=== PATIENT | female | born 1985 | race African-American/Black ===

== ENCOUNTER 2024-05-11 17:17 | Inpatient (IN) | payer SELFPAY ==
[~2024-05-11] VITALS: Ht 165.1 cm; Wt 169.2 kg
[2024-05-11 17:21] VITALS: O2SAT 96
[2024-05-11] MEDS ORDERED: ACETAMINOPHEN 325MG TABLET PO STA (18:32)
[2024-05-11] MEDS: SODIUM CHLORIDE 0.9% 1000ML BAG (SEPSIS BOLUS) IV ONE (18:45)
[2024-05-11] MEDS: PIPERACILLIN/TAZO 3.375G/50ML 50 ML IV STA (20:30)
[2024-05-11] MEDS: VANCOMYCIN 2,000 MG in DEXT 5% WATER 500 ML IV NR (20:30)
[2024-05-11] MEDS: ACETAMINOPHEN 325MG TABLET PO NR (20:34)
[2024-05-11 20:43] LABS: CHLORIDE 102 mEq/L (98-107); POTASSIUM 3.6 mEq/L (3.5-5.1); SODIUM 134 mEq/L (136-145)
[2024-05-11 20:44] LABS: CALCIUM 8.8 mg/dL (8.7-10.4); CARBON DIOXIDE 25 mEq/L (21-32)
[2024-05-11 20:45] LABS: DIFFERENTIAL COMMENT 1; HEMATOCRIT. 32.4 % (36.0-48.0); HEMOGLOBIN. 10.1 g/dL (12.0-16.0); MEAN CORPUSCULAR HEMOGLOBIN 22.4 pg (28.0-32.0); MEAN CORPUSCULAR HGB CONC 31.1 g/dL (31.0-37.0); MEAN PLATELET VOLUME 7.3 fl (7.4-10.4); PLATELET 434 x1000/uL (130-400); RED CELL DISTRIBUTION WIDTH 20.4 % (11.6-14.6); WHITE BLOOD COUNT 29.9 x1000/uL (4.5-11.0)
[2024-05-11] MEDS: ONDANSETRON HCL 4MG/2ML INJ IV ONE (20:45)
[2024-05-11] MEDS: MORPHINE SULFATE 4 MG/ML INJ (FOR IV/IM USE) IV ONE (20:45)
[2024-05-11 20:46] LABS: INR 1.1; PROTHROMBIN TIME 12.2 sec (9.6-11.0)
[2024-05-11 20:48] LABS: HCG SCREEN NEGATIVE
[2024-05-11 20:49] LABS: CREATININE 0.9 mg/dL (0.6-1.0); GLUCOSE 181 mg/dL (70-105)
[2024-05-11 20:50] LABS: TROPONIN I HIGH SENSITIVITY 4 ng/L (3.0-34); UREA NITROGEN BLOOD 7 mg/dL (9-23)
[2024-05-11 20:51] LABS: ALANINE AMINOTRANSFERASE 24 IU/L (10-49); ALBUMIN 4.1 g/dL (3.2-4.8); ASPARTATE AMINOTRANSFERASE 18 IU/L (<34); BILIRUBIN DIRECT 0.2 mg/dL (<=3.0)
[2024-05-11 20:52] LABS: BILIRUBIN TOTAL 0.7 mg/dL (0.1-1.0); PROTEIN TOTAL 7.1 g/dL (6.0-8.3)
[2024-05-11 21:04] LABS: ANISOCYTOSIS 1+; HYPOCHROMASIA 1+; MICROCYTOSIS 2+; PLATELET ESTIMATE INCREASED
[2024-05-11] MEDS: KETOROLAC 30MG/ML VIAL IV ONE (22:33)
[2024-05-11 23:05] LABS: CLARITY URINE TURBID (CLEAR); COLOR URINE RED (YELLOW); GLUCOSE URINE NEGATIVE (NEGATIVE); KETONES URINE 1+ (NEGATIVE); LEUKOCYTE ESTERASE URINE 3+ (NEGATIVE); NITRITE URINE NEGATIVE (NEGATIVE); OCCULT BLOOD URINE 3+ (NEGATIVE); PH URINE 5.5 (4.5-8.0); PROTEIN URINE 2+ (NEGATIVE); SPECIFIC GRAVITY URINE 1.023 (1.005-1.030)
[2024-05-11 23:25] LABS: RBC URINE TNTC /hpf (0-2); SQUAMOUS EPITHELIAL CELL URINE 1+ /lpf (RARE/1+); WBC URINE TNTC /hpf (0-2)
[2024-05-11 23:26] LABS: BACTERIA URINE 3+
[2024-05-12] MEDS: HYDROMORPHONE HCL/PF 2MG/ML INJ IV PRN (02:47)
[2024-05-12 09:00] VITALS: BP 137/73; PULSE 110; RESP 18; TEMP 97.7
[2024-05-12 10:31] VITALS: BP 132/80; PULSE 105; RESP 18; TEMP 100
[2024-05-12 12:00] VITALS: BP 135/81; PULSE 112; RESP 18; TEMP 104.7
[2024-05-12] MEDS ORDERED: CLONIDINE 0.1MG TABLET PO PRN (12:15)
[2024-05-12] MEDS ORDERED: MORPHINE SULFATE 2 MG/ML INJ (NOT FOR IM USE) IV PRN (12:15)
[2024-05-12] MEDS: PANTOPRAZOLE SODIUM 40 MG/VIAL IV SCH (12:51)
[2024-05-12] MEDS: ONDANSETRON HCL 4MG/2ML INJ IV PRN (12:52)
[2024-05-12] MEDS: ACETAMINOPHEN 325MG TABLET PO PRN (12:55)
[2024-05-12] MEDS: ENOXAPARIN 40MG/0.4ML SYR SUBCUT SCH (12:55)
[2024-05-12] MEDS: PIPERACILLIN/TAZO 3.375G/50ML 50 ML IV SCH (13:13)
[2024-05-12] MEDS: SODIUM CHLORIDE 0.9% 1,000 ML IV SCH (13:13)
[2024-05-12 14:07] LABS: BG BASE EXCESS -1.5 mmol/L (-2.0-2.0); BG HCO3 ACT 21.6 mmol/L (22.0-26.0); BG METHEMOGLOBIN 0.3 % (0.0-1.5); BG OXYGEN SATURATION 93.9 % (92.0-98.5); BG OXYHEMOGLOBIN 92.7 % (94.0-97.0); BG PCO2 31.1 mmHg (35.0-45.0); BG PO2 68.4 mmHg (75.0-100.0); BG SAMPLE SITE RIGHT RADIAL; BG VENT MODE ROOM AIR
[2024-05-12 16:00] VITALS: BP 133/60; PULSE 103; RESP 18; TEMP 100
[2024-05-12 20:00] VITALS: BP 128/56; PULSE 98; RESP 18; TEMP 97.6
[2024-05-12] MEDS: KETOROLAC 30MG/ML VIAL IV SCH (20:24)
[2024-05-12] MEDS ORDERED: NALOXONE HCL 0.4MG/ML VIAL IV PRN (21:15)
[2024-05-12 21:56] LABS: BASOPHILS % 0.1 % (0.0-2.0); DIFFERENTIAL COMMENT 0; EOSINOPHILS % 0.1 % (0.0-5.0); HEMATOCRIT. 29.9 % (36.0-48.0); HEMOGLOBIN. 9.1 g/dL (12.0-16.0); MEAN CORPUSCULAR HEMOGLOBIN 22.1 pg (28.0-32.0); MEAN CORPUSCULAR HGB CONC 30.5 g/dL (31.0-37.0); MEAN CORPUSCULAR VOLUME 72.5 fL (81.0-99.0); MEAN PLATELET VOLUME 7.7 fl (7.4-10.4); MONOCYTES % 11.3 % (2.0-8.0); NEUTROPHILS % 79.5 % (40.0-76.0); PLATELET 375 x1000/uL (130-400); RED BLOOD CELL COUNT 4.12 mill/uL (4.2-5.4); RED CELL DISTRIBUTION WIDTH 20.7 % (11.6-14.6); WHITE BLOOD COUNT 25.5 x1000/uL (4.5-11.0)
[2024-05-12 21:57] LABS: CHLORIDE 103 mEq/L (98-107); POTASSIUM 3.4 mEq/L (3.5-5.1); SODIUM 134 mEq/L (136-145)
[2024-05-12 21:58] LABS: CALCIUM 8.1 mg/dL (8.7-10.4); CARBON DIOXIDE 23 mEq/L (21-32)
[2024-05-12 22:03] LABS: GLUCOSE 205 mg/dL (70-105); UREA NITROGEN BLOOD 8 mg/dL (9-23)
[2024-05-12] MEDS: ZOLPIDEM TARTRATE 5MG TABLET PO PRN (23:20)
[2024-05-13] VITALS: BP 133/67; PULSE 96; RESP 18; TEMP 98
[2024-05-13] MEDS: VANCOMYCIN 1250MG in DEXTROSE 5% WATER 250ML IV SCH (02:17)
[2024-05-13 04:00] VITALS: BP 130/64; PULSE 101; RESP 18; TEMP 98.2
[2024-05-13 08:00] VITALS: BP 101/65; PULSE 114; RESP 18; TEMP 102.4
[2024-05-13 10:09] LABS: BASOPHILS % 0.3 % (0.0-2.0); DIFFERENTIAL COMMENT 0; EOSINOPHILS % 0.1 % (0.0-5.0); HEMATOCRIT. 28.6 % (36.0-48.0); HEMOGLOBIN. 8.9 g/dL (12.0-16.0); LYMPHOCYTES % 7.8 % (20.0-50.0); MEAN CORPUSCULAR HEMOGLOBIN 22.1 pg (28.0-32.0); MEAN CORPUSCULAR VOLUME 71.5 fL (81.0-99.0); MEAN PLATELET VOLUME 7.6 fl (7.4-10.4); MONOCYTES % 10.1 % (2.0-8.0); NEUTROPHILS % 81.7 % (40.0-76.0); PLATELET 373 x1000/uL (130-400); RED CELL DISTRIBUTION WIDTH 20.4 % (11.6-14.6); WHITE BLOOD COUNT 18.4 x1000/uL (4.5-11.0)
[2024-05-13 10:16] LABS: CHLORIDE 103 mEq/L (98-107); POTASSIUM 3.5 mEq/L (3.5-5.1); SODIUM 134 mEq/L (136-145)
[2024-05-13 10:17] LABS: CARBON DIOXIDE 25 mEq/L (21-32)
[2024-05-13 10:22] LABS: CREATININE 0.9 mg/dL (0.6-1.0); GLUCOSE 201 mg/dL (70-105); UREA NITROGEN BLOOD 8 mg/dL (9-23)
[2024-05-13 12:00] VITALS: BP 120/60; PULSE 114; RESP 19; TEMP 102
[2024-05-13] MEDS: POTASSIUM CHLORIDE 20MEQ TABLET SR PO NR (12:16)
[2024-05-13 16:00] VITALS: BP 124/56; PULSE 108; RESP 20; TEMP 98.8
[2024-05-13] MEDS: VANCOMYCIN 1GM/200ML PMX (BAXTER) IV SCH (16:20)
[2024-05-13] MEDS ORDERED: DEXTROSE 50% WATER 50ML SYRINGE IV PRN (18:45)
[2024-05-13 20:00] VITALS: BP 122/62; PULSE 102; RESP 20; TEMP 99.2
[2024-05-13] MEDS: BLOOD SUGAR DIAGNOSTIC STRIP TEST SCH (21:00)
[2024-05-13] MEDS: INSULIN LISPRO 100 UNITS/ML SUBCUT SCH (21:00)
[2024-05-13] MEDS: HYDROCODONE/ACETAMINOPHEN 10/325MG TABLET PO PRN (21:16)
[2024-05-13] MEDS: MELATONIN 3MG TABLET PO PRN (22:40)
[2024-05-14] VITALS (7 sets, daily range): BP systolic 124–140; BP diastolic 56–76; PULSE 91–111; RESP 18–20; TEMP 97.8–100.8
[2024-05-14 05:55] LABS: CALCIUM 8.3 mg/dL (8.7-10.4); CHLORIDE 106 mEq/L (98-107); POTASSIUM 3.7 mEq/L (3.5-5.1); SODIUM 136 mEq/L (136-145)
[2024-05-14 05:56] LABS: CARBON DIOXIDE 24 mEq/L (21-32)
[2024-05-14 06:02] LABS: CREATININE 0.8 mg/dL (0.6-1.0); GLUCOSE 183 mg/dL (70-105); UREA NITROGEN BLOOD 8 mg/dL (9-23)
[2024-05-14 06:10] LABS: BASOPHILS % 0.4 % (0.0-2.0); DIFFERENTIAL COMMENT 0; EOSINOPHILS % 0.6 % (0.0-5.0); HEMATOCRIT. 29.6 % (36.0-48.0); HEMOGLOBIN. 9.2 g/dL (12.0-16.0); LYMPHOCYTES % 11.5 % (20.0-50.0); MEAN CORPUSCULAR HEMOGLOBIN 22.5 pg (28.0-32.0); MEAN CORPUSCULAR HGB CONC 31.2 g/dL (31.0-37.0); MEAN CORPUSCULAR VOLUME 72.1 fL (81.0-99.0); MEAN PLATELET VOLUME 8.1 fl (7.4-10.4); MONOCYTES % 11.6 % (2.0-8.0); NEUTROPHILS % 75.9 % (40.0-76.0); PLATELET 365 x1000/uL (130-400); RED BLOOD CELL COUNT 4.11 mill/uL (4.2-5.4); RED CELL DISTRIBUTION WIDTH 20.3 % (11.6-14.6); WHITE BLOOD COUNT 12.3 x1000/uL (4.5-11.0)
[2024-05-14] MEDS ORDERED: METF-414 MT (08:49)
[2024-05-14] MEDS ORDERED: CIPR-263 MT (08:49)
[2024-05-14] MEDS ORDERED: VANCOMYCIN 1GM/200ML PMX (BAXTER) IV SCH (20:00)
== END 2024-05-14 19:00 | disposition home or self-care (01) | DRG 720 ==
LOC: ER 17:17 → 8WST 22:07 → EDBEDREQSVC 22:35 → EDBEDREQTM 22:35 → EDBEDREQ 22:35
PROVIDERS: ADMIT Internal Medicine; ATTEND Internal Medicine
DX: A41.9 Sepsis, unspecified organism (principal); Z68.44 Body mass index [BMI] 60.0-69.9, adult; K76.0 Fatty (change of) liver, not elsewhere classified; N12 Tubulo-interstitial nephritis, not specified as acute or chronic; D50.9 Iron deficiency anemia, unspecified; E11.65 Type 2 diabetes mellitus with hyperglycemia; G43.909 Migraine, unspecified, not intractable, without status migrainosus; Z20.822 Contact with and (suspected) exposure to COVID-19; N10 Acute pyelonephritis; E66.01 Morbid (severe) obesity due to excess calories; K57.30 Diverticulosis of large intestine without perforation or abscess without bleeding
CPT/HCPCS: 36415; 36600; 71045; 74176; 80048; 80076; 80202; 81003; 82375; 82805; 82962; 83036; 83605; 84145; 84484; 84703; 85025; 85379; 87426; 87804; 93005; 93970; 99291; J1170; J1650; J1815; J1885; J2270; J2405; J2470; J2543; J3370; J7030; J7060